=== PATIENT | male | born 1990 | race African-American/Black ===

== ENCOUNTER 2021-06-23 11:02 | Emergency (ER) | payer MEDICAID ==
[~2021-06-23] VITALS: Ht 172.7 cm; Wt 64.0 kg
[2021-06-23] MEDS ORDERED: CEPH500T PO (12:16)
[2021-06-23] MEDS ORDERED: IBUP-2029 PO (12:16)
[2021-06-23 12:44] VITALS: BP 121/71
== END 2021-06-23 12:45 | disposition home or self-care (01) ==
LOC: ER 11:02
DX: S51.811A Laceration without foreign body of right forearm, initial encounter (principal); X99.1XXA Assault by knife, initial encounter; Y93.89 Activity, other specified; Y92.480 Sidewalk as the place of occurrence of the external cause
CPT/HCPCS: 99283